=== PATIENT | male | born 1935 | race Caucasian/White ===

== ENCOUNTER 2021-11-11 13:35 | Emergency (ER) | payer MEDICARE, OTHER ==
[~2021-11-11] VITALS: Ht 167.6 cm; Wt 78.6 kg
[~2021-11-11 13:35] MED LIST: ALBU6.7H9 IH; AMIO200T27 PO; DEC4T PO; HYDR-3686 PO; LEVO-65 PO; LEVO150C4 PO; MOLN200C PO; SERT25TA PO; ZOLP10TA PO
[2021-11-11 15:56] LABS: BASOPHILS # (AUTO) 0.1 X10'3 (0-0.2); BASOPHILS % (AUTO) 0.7 % (0-1); EOSINOPHILS # (AUTO) 0.2 X10'3 (0-0.9); EOSINOPHILS % (AUTO) 2.2 % (0-6); LYMPHOCYTES # (AUTO) 1.4 X10'3 (1.1-4.8); LYMPHOCYTES % (AUTO) 19.1 % (21-51); MEAN CORPUSCULAR HEMOGLOBIN 30.7 PG (27.0-31.0); MEAN CORPUSCULAR HGB CONC 31.7 g/dL (33.0-36.5); MEAN CORPUSCULAR VOLUME 96.9 FL (78-98); MEAN PLATELET VOLUME 7.6 FL (7.4-10.4); MONOCYTES # (AUTO) 0.6 X10'3 (0-0.9); MONOCYTES % (AUTO) 7.4 % (2-12); NEUTROPHILS # (AUTO) 5.3 X10'3 (1.8-7.7); NEUTROPHILS % (AUTO) 70.6 % (42-75); PLATELET COUNT 263 X10'3 (140-440); RED BLOOD COUNT 2.12 X10'6 (4.70-6.10); RED CELL DISTRIBUTION WIDTH 19.5 % (11.5-14.5); WHITE BLOOD COUNT 7.6 X10'3 (4.5-11.0)
[2021-11-11 16:01] LABS: HEMATOCRIT 20.6 % (42.0-52.0); HEMOGLOBIN 6.5 g/dl (14.0-17.9)
[2021-11-11 16:03] LABS: OCCULT BLOOD STOOL NEGATIVE (Neg)
[2021-11-11 16:12] LABS: ALANINE AMINOTRANSFERASE 11 U/L (12-78); ALBUMIN 1.5 G/DL (3.4-5.0); ALBUMIN/GLOBULIN RATIO 0.4 (1.1-1.5); ALKALINE PHOSPHATASE 182 IU/L (46-116); ANION GAP 6 (8-16); ASPARTATE AMINO TRANSFERASE 15 U/L (10-37); BILIRUBIN,TOTAL 0.3 MG/DL (0.1-1.0); BLOOD UREA NITROGEN 32 MG/DL (7-18); BUN/CREATININE RATIO 12.9 (5.4-32.0); CHLORIDE 103 MMOL/L (99-107); CREATININE 2.48 MG/DL (0.60-1.10); GLUCOSE 154 MG/DL (70-104); POTASSIUM 4.1 MMOL/L (3.5-5.1); SODIUM 141 MMOL/L (135-145); TOTAL CARBON DIOXIDE 32.5 MMOL/L (24-32); TOTAL PROTEIN 5.5 G/DL (6.4-8.2); eGFR 25 ML/MIN
[2021-11-11 17:58] VITALS: BP 107/46
[2021-11-11 18:13] LABS: ANISOCYTOSIS 2+; PLATELET ESTIMATE NORMAL
[2021-11-11 18:14] LABS: POLYCHROMASIA 2+
[2021-11-11 18:15] LABS: HYPOCHROMASIA 1+; TEAR DROP CELLS FEW
[2021-11-11] MEDS ORDERED: furosemide 40mg/4ml inj IV ONE (18:20)
[2021-11-11 18:26] VITALS: BP 108/71
[2021-11-11] MEDS ORDERED: vitamin A & D ointment-NF 1 APPLIC TUBE TP ONE (19:05)
[2021-11-11 20:35] VITALS: BP 119/44
== END 2021-11-11 20:38 | disposition home or self-care (01) ==
LOC: ER 13:35
DX: D64.9 Anemia, unspecified (principal); L89.153 Pressure ulcer of sacral region, stage 3; E03.9 Hypothyroidism, unspecified; I48.91 Unspecified atrial fibrillation; I12.0 Hypertensive chronic kidney disease with stage 5 chronic kidney disease or end stage renal disease; N18.6 End stage renal disease; I25.10 Atherosclerotic heart disease of native coronary artery without angina pectoris; Z99.2 Dependence on renal dialysis; Z86.2 Personal history of diseases of the blood and blood-forming organs and certain disorders involving the immune mechanism; Z98.890 Other specified postprocedural states; Z79.2 Long term (current) use of antibiotics; Z79.899 Other long term (current) drug therapy
CPT/HCPCS: 36415; 36430; 80053; 82272; 85008; 85025; 86885; 86900; 86901; 86920; 96374; 99285; A6223; J1940; J7040; P9016; A6213